=== PATIENT | male | born 1965 | race Hispanic/Latino ===

== ENCOUNTER 2018-06-04 14:26 | Emergency (ER) | payer MEDICAID, OTHER ==
[2018-06-04 14:33] VITALS: BMI 25.7
[2018-06-04] MEDS ORDERED: Sodium Chloride 0.9% 1,000 ML IV STA ×2 (14:33→14:34)
--- NOTE | 2018-06-04 14:34 | ED PDOC ---
Arrival/HPI - General Time Seen by Provider: 06/04/18 14:29 Historian: Patient - History of Present Illness Narrative History of Present Illness (Text): 06/04/18 14:40 42 year old male, with no significant PMH, who presents to the emergency department complaining of severe left flank pain that radiates down to abdomen. Patient reports left flank pain began and decided to go to the bathroom and had urinary retention associated with nausea and dark stool bowel movement. Patient denies chest pain, shortness of breath, dizziness, fever, hematuria, or other complaints. Time/Duration: Prior to Arrival Symptom Onset: Sudden Symptom Course: Unchanged Severity Level: Severe Context: Home Past Medical History - Provider Review Nursing Documentation Reviewed: Yes - Tetanus Immunization Tetanus Immunization: Unknown - Past Medical History Past Medical History: No Previous - Psychiatric Hx Depression: No Hx Emotional Abuse: No Hx Physical Abuse: No Hx Substance Use: No - Past Surgical History Past Surgical History: No Previous - Suicidal Assessment Feels Threatened In Home Enviroment: No Family/Social History - Physician Review Nursing Documentation Reviewed: Yes Family/Social History: Unknown Family HX Hx Alcohol Use: Yes Hx Substance Use: No Hx Substance Use Treatment: No Allergies/Home Meds Allergies/Adverse Reactions: Allergies No Known Allergies Allergy (Verified 03/31/14 08:21) Review of Systems - Review of Systems Constitutional: absent: Fevers ENT: absent: Sinus Congestion Respiratory: absent: SOB Cardiovascular: absent: Chest Pain Gastrointestinal: Abdominal Pain (lower left abdominal pain ), Stool Changes ( dark BM). absent: Vomiting Genitourinary Male: Urinary Output Changes (retention ). absent: Hematuria Musculoskeletal: Other (left flank pain ) Skin: absent: Rash Neurological: absent: Headache, Facial Droop Endocrine: absent: Diaphoresis Physical Exam Vital Signs Reviewed: Yes Vital Signs Pulse Resp BP Pulse Ox 06/04/18 16:27 86 18 168/94 H 100 06/04/18 14:27 92 H 22 174/106 H 100 Temperature: Afebrile Blood Pressure: Hypertensive Pulse: Tachycardic Respiratory Rate: Normal Appearance: Positive for: Well-Appearing, Non-Toxic, Comfortable Pain Distress: None Mental Status: Positive for: Alert and Oriented X 3 - Systems Exam Head: Present: Atraumatic, Normocephalic Pupils: Present: PERRL Extroacular Muscles: Present: EOMI Conjunctiva: Present: Normal Respiratory/Chest: Present: Clear to Auscultation, Good Air Exchange. No: Respiratory Distress, Accessory Muscle Use, Wheezes, Decreased Breath Sounds, Rales, Retracting, Rhonchi Cardiovascular: Present: Regular Rate and Rhythm, Normal S1, S2. No: Murmurs Abdomen: Present: Tenderness (left side abominal tenderness ), Normal Bowel Sounds, Guarding. No: Distention, Peritoneal Signs, Rebound Back: Present: CVA Tenderness (left sided) Lower Extremity: Present: Normal Inspection, NORMAL PULSES, Normal ROM, Neurovascularly Intact, Capillary Refill < 2 s. No: Edema, CALF TENDERNESS, Cyanosis, Tenderness, Swelling, Erythema, Deformity Neurological: Present: GCS=15, CN II-XII Intact, Speech Normal Skin: Present: Warm, Dry, Normal Color. No: Rashes Psychiatric: Present: Alert, Oriented x 3, Normal Insight, Normal Concentration Medical Decision Making ED Course and Treatment: 06/04/18 Impression: 52 year old male with left lower abdominal tenderness with guarding and left CVA tenderness complaining of left flank pain radiating to lower left abdomen since [employer]. Differential Diagnosis included but are not limited to: GI bleed vs. Kidney Stone Plan: -- CT abdomen and pelvis -- Labs -- Morphine, Zofran, and Sodium Chloride -- Urinalysis -- Reassess and disposition Progress Notes: 06/04/18 17:[address] without PO or IV contrast: Dictated by: Dr.Nikhil Jackie Cuevas MD IMPRESSION: 4x2x4 mm distal left ureteral calculus causing mild hydroureteronephrosis. - Lab Interpretations Lab Results: 06/04/18 14:42 06/04/18 14:42 Lab Results 06/04/18 16:05: Urine Color Yellow, Urine Appearance Clear, Urine pH 7.0, Ur Specific [place] 1.010, Urine Protein Trace H, Urine Glucose (UA) Negative, Urine Ketones 40 H, Urine Blood Large H, Urine Nitrate Negative, Urine Bilirubin Negative, Urine Urobilinogen 0.2, Ur Leukocyte Esterase Negative, Urine RBC 25 - 30, Urine WBC Negative, Ur Epithelial Cells None, Urine Bacteria None 06/04/18 14:42: Sodium 143, Potassium 3.6, Chloride 105, Carbon Dioxide 20 L, Anion Gap 21 H, BUN 18, Creatinine 1.2, Est GFR ( Amer) > 60, Est GFR ( Non-Af Amer) > 60, Random Glucose 174 H, Calcium 10.0, Magnesium 2.0, Total Bilirubin 0.8, AST 34, ALT 47, Alkaline Phosphatase 104, Total Protein 8.8 H, Albumin 5.2 H, Globulin 3.6, Albumin/Globulin Ratio 1.4, Lipase 62 06/04/18 14:42: PT 10.8, INR 0.95, APTT 29.2 06/04/18 14:42: WBC 13.1 H, RBC 5.67, Hgb 17.3, Hct 47.0, MCV 82.9, MCH 30.5, MCHC 36.8, RDW 12.6, Plt Count 243, MPV 9.0, Gran % 74.1 H, Lymph % (Auto) 18.7 L, [place] % (Auto) 6.2 H, Eos % (Auto) 0.8 L, Baso % (Auto) 0.2, Gran # 9.73 H, Lymph # (Auto) 2.5, [place] # (Auto) 0.8 H, Eos # (Auto) 0.1, Baso # (Auto) 0.03 I have reviewed the lab results: Yes - RAD Interpretation Radiology Orders: 06/04/18 14:33 ABD & PELVIS W/O PO OR IV CONT [CT] Stat Records And Tape Recordings Engineer: Radiologist - Medication Orders Current Medication Orders: Sodium Chloride (Sodium Chloride 0.9%) 1,000 mls @ 100 mls/hr IV .Q10H STA Stop: 06/05/18 00:32 Last Admin: 06/04/18 14:46 Dose: 100 mls/hr eMAR Start Stop Document 06/04/18 14:46 SF (Rec: 06/04/18 14:46 [facility] [id number]) Intravenous Solution Start Date 06/04/18 Start Time 14:46 Discontinued Medications Cephalexin Monohydrate (Keflex) 500 mg PO STAT STA PRN Reason: Protocol Stop: 06/04/18 17:30 Hydromorphone HCl (Dilaudid) 1 mg IVP STAT STA Stop: 06/04/18 14:59 Last Admin: 06/04/18 15:09 Dose: 1 mg MAR Pain Assessment Document 06/04/18 15:09 SF (Rec: 06/04/18 15:09 [facility] [id number]) Pain Reassessment Is this a pain reassessment? Yes Sleep Is patient sleeping during reassessment? No Presence of Pain Presence of Pain Yes IVP Administration Document 06/04/18 15:09 SF (Rec: 06/04/18 15:09 [facility] [id number]) Charges for Administration # of IVP Administrations 1 Hydromorphone HCl (Dilaudid) 1 mg IVP STAT STA Stop: 06/04/18 16:39 Sodium Chloride (Sodium Chloride 0.9%) 1,000 mls @ 999 mls/hr IV .Q1H1M STA Stop: 06/04/18 15:34 Last Admin: 06/04/18 14:45 Dose: 999 mls/hr eMAR Start Stop Document 06/04/18 14:45 SF (Rec: 06/04/18 14:46 [facility] [id number]) Intravenous Solution Start Date 06/04/18 Start Time 14:45 End Date 06/04/18 End time 15:46 Total Infusion Time 61 Morphine Sulfate (Morphine) 4 mg IVP STAT STA Stop: 06/04/18 14:36 Last Admin: 06/04/18 14:44 Dose: 4 mg MAR Pain Assessment Document 06/04/18 14:44 SF (Rec: 06/04/18 14:44 [facility] [id number] Pain Reassessment Is this a pain reassessment? Yes Sleep Is patient sleeping during reassessment? No Presence of Pain Presence of Pain Yes IVP Administration Document 06/04/18 14:44 SF (Rec: 06/04/18 14:44 [facility] [id number]) Charges for Administration # of IVP Administrations 1 Ondansetron HCl (Zofran Inj) 4 mg IVP STAT STA Stop: 06/04/18 14:34 Last Admin: 06/04/18 14:44 Dose: 4 mg IVP Administration Document 06/04/18 14:44 SF (Rec: 06/04/18 14:44 [facility] [place] Charges for Administration # of IVP Administrations 1 Pantoprazole Sodium (Protonix Inj) 80 mg IVP STAT STA Stop: 06/04/18 14:59 Last Admin: 06/04/18 15:09 Dose: 80 mg IVP Administration Document 06/04/18 15:09 SF (Rec: 06/04/18 15:09 [facility] Charges for Administration # of IVP Administrations 1 - Scribe Statement The provider has reviewed the documentation as recorded by the Shay Stone Provider Scribe Attestation: All medical record entries made by the Scribe were at my direction and personally dictated by me. I have reviewed the chart and agree that the record accurately reflects my personal performance of the history, physical exam, medical decision making, and the department course for this patient. I have also personally directed, reviewed, and agree with the discharge instructions and disposition. Disposition/Present on Arrival - Present on Arrival History of DVT/PE: No History of Uncontrolled Diabetes: No Urinary Catheter: No History Surgical Site Infection Following: None - Disposition Diagnosis: Kidney stone Disposition: HOME/ ROUTINE Disposition Time: 17:37 Patient Problems: Current Active Problems Problem Status Onset Kidney stone Acute Condition: IMPROVED Discharge Instructions (ExitCare): Kidney Stones in Adults Additional Instructions: BJ LEON, thank you for letting us take care of you today. Your provider was Brice Patel DO and you were treated for Kidney Stone. The emergency medical care you received today was directed at your acute symptoms. If you were prescribed any medication, please fill it and take as directed. It may take several days for your symptoms to resolve. Return to the Emergency Department if your symptoms worsen, do not improve, or if you have any other problems. Please contact your doctor or call one of the physicians/clinics you have been referred to that are listed on the Patient Visit Information form that is included in your discharge packet. Bring any paperwork you were given at discharge with you along with any medications you are taking to your follow up visit. Our treatment cannot replace ongoing medical care by a primary care provider outside of the emergency department. Thank you for allowing the [facility] team to be part of your care today. If you had an X-Ray or CT scan: A Radiologist will review the ED reading if any change in treatment is needed we will contact you. If you had a blood, urine, or wound culture: It will take several days for the results, if any change in treatment is needed we will contact you. If you had an STI test: It will take 48 hours for the results. Please call after 1 week if you have not heard back. Prescriptions: Cephalexin [cephalexin] 500 mg PO BID #14 cap Ibuprofen [Motrin] 600 mg PO Q6 PRN #30 tab PRN Reason: Pain, Moderate (4-7) oxyCODONE/Acetaminophen [Percocet 5/325 mg Tab] 1 ea PO Q6 PRN #20 tab PRN Reason: Pain, Moderate (4-7) Tamsulosin [Flomax] 0.4 mg PO DAILY #20 cap Referrals: Ilia Whitman MD [Staff Provider] - Follow up with primary Shilpi Kovacs MD [Staff Provider] - Follow up with primary Forms: [facility] (Setswana), WORK NOTE
[2018-06-04] MEDS ORDERED: Morphine 4 mg/ml ISec IVP STA (14:35)
[2018-06-04 14:52] LABS: BASO # 0.03 K/mm3 (0.0-2.0); BASO % 0.2 % (0.0-3.0); EOS # 0.1 (0.0-0.7); EOS % 0.8 % (1.5-5.0); GRAN # 9.73 (1.4-6.5); GRAN % 74.1 % (50.0-68.0); HEMOGLOBIN 17.3 g/dL (14.0-18.0); LYMPH # 2.5 (1.2-3.4); LYMPH % 18.7 % (22.0-35.0); MEAN CELL VOLUME 82.9 fl (80.0-105.0); MEAN CORPUSCULAR HEMOGLOBIN 30.5 pg (25.0-35.0); MEAN CORPUSCULAR HGB CONC 36.8 g/dl (31.0-37.0); MONO # 0.8 (0.1-0.6); MONO % 6.2 % (1.0-6.0); RBC 5.67 10^6/uL (3.5-6.1); RED CELL DISTRIBUTION WIDTH 12.6 % (11.5-14.5); WHITE BLOOD COUNT 13.1 10^3/ul (4.5-11.0)
[2018-06-04] MEDS ORDERED: HYDROmorphone 1 mg/ml ISec IVP STA ×2 (14:58→16:38)
[2018-06-04 15:02] LABS: ALB/GLOB RATIO 1.4 (1.1-1.8); ALBUMIN 5.2 g/dL (3.0-4.8); ALT/SGPT 47 U/L (7-56); AST/SGOT 34 U/L (17-59); BLOOD UREA NITROGEN 18 mg/dL (7-21); GFR AFRICAN-AMERICAN > 60; GFR NON-AFRICAN AMERICAN > 60; INR 0.95 (0.93-1.08); LIPASE 62 U/L (23-300); PARTIAL THROMBOPLASTIN TIME 29.2 Seconds (25.1-36.5); PROTHROMBIN TIME 10.8 SECONDS (9.4-12.5)
[2018-06-04 16:22] LABS: URINE APPEARANCE CLEAR (CLEAR); URINE BILIRUBIN NEGATIVE (NEGATIVE); URINE BLOOD LARGE (NEGATIVE); URINE COLOR YELLOW (YELLOW); URINE GLUCOSE (UA) NEGATIVE (NEGATIVE); URINE LEUKOCYTE ESTERASE NEGATIVE Leu/uL (NEGATIVE); URINE PROTEIN TRACE mg/dL (<30 mg/dL); URINE UROBILINOGEN 0.2 E.U./dL (<1 E.U./dL)
[2018-06-04 16:37] LABS: URINE RBC 25 - 30 /hpf (0-2); URINE WBC NEGATIVE /hpf (0-6)
[2018-06-04 16:47] VITALS: RESP 18
--- NOTE | 2018-06-04 17:05 | CT ---
Date of service: 06/04/2018 PROCEDURE: CT Abdomen and Pelvis without intravenous contrast HISTORY: L flank and abd pain r/o stone vs gi bleed COMPARISON: CT scan of the abdomen pelvis dated 03/31/2014. TECHNIQUE: Contiguous images were obtained from the domes of the diaphragms to the upper thighs without the administration of intravenous contrast. Oral contrast was not administered. Radiation dose: Total exam DLP = 696.2 mGy-cm. This CT exam was performed using one or more of the following dose reduction techniques: Automated exposure control, adjustment of the mA and/or kV according to patient size, and/or use of iterative reconstruction technique. FINDINGS: LOWER THORAX: Unremarkable. LIVER: Unremarkable. No gross lesion or ductal dilatation. GALLBLADDER AND BILE DUCTS: Unremarkable. PANCREAS: Unremarkable. No gross lesion or ductal dilatation. SPLEEN: Unremarkable. ADRENALS: Unremarkable. No mass. KIDNEYS AND URETERS: 4 x 2 x 4 mm distal left ureteral calculus causing mild hydroureteronephrosis and perinephric stranding. Nonobstructive punctate right interpolar calculus. No right hydronephrosis. No solid mass. VASCULATURE: Calcific atherosclerosis. No aortic aneurysm. BOWEL: Unremarkable. No obstruction. No gross mural thickening. APPENDIX: Unremarkable. Normal appendix. PERITONEUM: Tiny fat containing umbilical hernia. No free fluid. No free air. LYMPH NODES: Unremarkable. No enlarged lymph nodes. BLADDER: Unremarkable. REPRODUCTIVE: Unremarkable. BONES: No acute fracture. OTHER FINDINGS: None. IMPRESSION: 4 x 2 x 4 mm distal left ureteral calculus causing mild hydroureteronephrosis.
[2018-06-04 17:51] VITALS: BP 149/84; PULSE 78; O2SAT 99
[2018-06-04 18:27] VITALS: TEMP 98.5
== END 2018-06-04 17:51 | disposition home or self-care (01) ==
LOC: ED 14:26
DX: N20.0 Calculus of kidney (principal)
CPT/HCPCS: 74176; 80053; 81001; 83690; 83735; 85025; 85610; 85730; 96361; 96374; 96375; 99285; C9113; J1170; J2270; J2405; J7030